=== PATIENT | female | born 1940 | race Caucasian/White ===

== ENCOUNTER → 2020-04-26 09:02 | Outpatient (BNVA) | payer MEDICARE, OTHER, SELFPAY | PROVIDERS: Family Provider Nurse Practitioner Family; PCP Nurse Practitioner Family; Visit Provider Nurse Practitioner Family | DX: Z79.899 Other long term (current) drug therapy (principal); E11.9 Type 2 diabetes mellitus without complications; I25.10 Atherosclerotic heart disease of native coronary artery without angina pectoris | CPT/HCPCS: 80053; 82043; 83036 ==

== ENCOUNTER 2020-05-28 09:24 | Outpatient (CLI) | payer MEDICARE, OTHER, SELFPAY ==
--- NOTE | 2020-06-10 06:51 | ONC FU_ITS ---
Dr. Higgins Patient Follow-Up Note Patient: Harper Ryan Unit #: [id number]: 1940 Dicatated By: Armen Higgins M.D.Date of Visit:May 28, 2020 Onc Med Follow-up/Prog Note Chief Complaint: Colon cancer. 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 She also has osteoporosis with multiple vertebral compression fractures. She underwent hand-assisted right hemicolectomy in October 2010. Pathology showed involvement in 1/16 pericolic lymph nodes. Because of underlying medical illnesses, her adjuvant chemotherapy was limited to Xeloda. As of May 2011 she had completed 6 cycles of treatment. She did require some dose reduction due to hand/foot syndrome. She tolerated treatment well otherwise. Thus far during followup there has been no evidence of recurrence. She has underlying ischemic cardiomyopathy with associated atrial fibrillation and congestive heart failure. She underwent placement of pacemaker/defibrillator in August 2017. Her other medical illnesses include hypertension, hyperlipidemia, and type II diabetes. She has had no documented coronary artery disease. She also has a history of severe osteoporosis. She suffered a vertebral compression fracture in 2013, and at that time she started treatment with Prolia. As of my follow-up visit with her in November 2015, she had remained stable clinically. However, in July 2016 she suffered another vertebral compression fracture. On her follow-up visit in November 2016 she appeared to be recovering pretty well. Her repeat DEXA scan on 11/25/2016 showed a T score of -2.6 in the lumbar spine, and -2.7 in the left femoral neck, consistent with osteoporosis. There was noted to be improvement compared to a previous study in October 2013. Despite the improvement, she suffered further vertebral compression fractures. She has undergone kyphoplasty to 4 vertebral bodies. She is seen for a scheduled visit. She has been feeling pretty good generally. She continues to have a lot of pain in her spine, which does limit her activity. She still does light work at home. ECOG score is 1. She does not have good appetite, but she does eat. She has lost weight. By our scale she is down 9 pounds over the past year. Lately her blood sugars have been running high. She does not have fever or night sweats. She has no shortness of breath, cough, or chest pain. She sometimes has acid reflux, but she manages it adequately with Liz-Benoit. Her bowels are occasionally loose. She has not been aware of any blood in the stool. Bladder function has been okay, though she does get up 2 or 3 times at night. She has no other joint or bone pain. She does not complain of headache. She occasionally gets dizzy in the head. She has no focal neurologic symptoms. She does have some difficulty sleeping, and she reports having bad dreams. Medications: Acetaminophen 1 (500 mg) Tablet Oral daily PRN, Coreg 1 (25 mg) Tablet Oral b.i.d., Coumadin 5 mg - Take 1 Tablet Oral daily, Endocet 1 (5-325 mg) Tablet Oral t.i.d. PRN, Furosemide 1 Tablet (of 40 mg) Oral b.i.d., GlipiZIDE 10 mg - Take 1 Tablet Oral b.i.d., Lantus 28 Units (of 100 Units/mL) Subcutaneous at bedtime, Lisinopril 1 (10 mg) Tablet Oral daily, Nitroglycerin 0.4 mg - Take 1 Tablet, sublingual Sublingual PRN, Prolia Subcutaneous q 24 weeks Allergies: No Known Allergies. Review of Systems: Constitutional - She is generally feeling good. She is mostly staying home due to the current pandemic. She is able to do light housework. Her appetite is poor but she is able eat. Her weight is down 9 pounds from last years visit. No fever, night sweats, or hot flashes. ECOG score is 1, ENMT - No sinus congestion/drainage. No mouth sores. No sore throat or difficulty swallowing, Hematologic/Lymphatic - No abnormal bruising or bleeding, Respiratory - No shortness of breath. No cough. No pleuritic pain or hemoptysis, Cardiovascular - No angina pain. No palpitations, Gastrointestinal - No nausea or vomiting. She has occasional heartburn. She has some loose stools. No blood in the stool or black stools, Genitourinary (F) - No dysuria or hematuria. She has urinary frequency at night. No urgency or incontinence, Musculoskeletal - She has chronic back pain. No other joint or bone pain, Integumentary - No skin complications, Neurologic - No headache. She has had episodes of dizziness. No numbness or tingling. No other focal neurologic symptoms, Psychiatric - No anxiety or depression. She is not sleeping well. She has bad dreams. Vital Signs: Performed on May 28, 2020 09:35 Height - 61.00 in Weight - 139 lbs (LOW) BSA - 1.62 sq.m BMI - 26.26 Temperature - 98.0 F (LOW) Pulse - 79 /min Respiration - 16 /min BP - 118/60 mm(hg) O2 Sat - 97 % Pain - 3 Physical Examination: Constitutional - She looks pretty good generally, Eyes - Sclerae nonicteric. Conjunctivae clear, ENMT - No lesions noted in the oral cavity, Hematologic/Lymphatic - No cervical, clavicular or axillary adenopathy, Respiratory - Lungs are clear with good air movement bilaterally, Cardiovascular - Heart rhythm is regular. There is a II/ systolic murmur. There is no galllop or rub noted, Abdomen - Soft. Liver and spleen are not enlarged. There is no abdominal mass or ascites noted and there is no inguinal adenopathy, Extremities - No edema, Neurologic - No focal neurologic deficits noted. Lab/Imaging: Impression: 1. Patient with poorly differentiated adenocarcinoma of the cecum, stage IIIA. She was given adjuvant chemotherapy with Xeloda following laparoscopic right hemicolectomy in October 2010. 2. She has underlying cardiomyopathy with congestive heart failure. 3. She has severe osteoporosis. She had started treatment with Prolia following a vertebral compression fracture in 2013. In July 2017 she had an episode of major congestive heart failure with ejection fraction reported to have declined to 11%. She underwent placement of pacemaker/implantable defribrillator. Despite the low cardiac ejection fraction, she has continuds to have pretty good energy and activity tolerance. She has had ongoing problems with her back pain and recently she has had higher blood sugars and elevated hemoglobin A1c level. She occasionally has loose stools, but she does manages adequately with antidiarrhea medication. Overall, she appears to be doing well clinically. Thus far there has been no evidence of recurrence of the colon cancer. Due to her underlying medical illnesses, particularly the cardiomyopathy, she has not had surveillance colonoscopy. Plan: She remains on observation/expectant management for the colon cancer. I will get her scheduled for CEA level with Julee Galarza. Assuming that has not increased significantly, I will just plan to see her again in 1 year. Signed By: Armen Higgins M.D. <<Signature on File>>
== END 2020-05-28 09:25 | disposition home or self-care (01) ==
LOC: ONCMED 09:26
PROVIDERS: Family Provider Nurse Practitioner Family; PCP Nurse Practitioner Family; Visit Provider Internal Medicine Medical Oncology
DX: Z08 Encounter for follow-up examination after completed treatment for malignant neoplasm (principal); Z85.038 Personal history of other malignant neoplasm of large intestine; I25.5 Ischemic cardiomyopathy; I50.9 Heart failure, unspecified; R73.9 Hyperglycemia, unspecified; R19.7 Diarrhea, unspecified; M81.0 Age-related osteoporosis without current pathological fracture; Z95.810 Presence of automatic (implantable) cardiac defibrillator; Z90.49 Acquired absence of other specified parts of digestive tract
CPT/HCPCS: G0463

== ENCOUNTER → 2020-07-30 08:47 | Outpatient (BNVA) | payer MEDICARE, OTHER, SELFPAY | PROVIDERS: Family Provider Nurse Practitioner Family; PCP Nurse Practitioner Family; Visit Provider Nurse Practitioner Family | DX: E11.9 Type 2 diabetes mellitus without complications (principal); Z79.899 Other long term (current) drug therapy | CPT/HCPCS: 80048; 83036 ==

== ENCOUNTER → 2020-11-12 09:08 | Outpatient (BNVA) | payer MEDICARE, OTHER, SELFPAY | PROVIDERS: Family Provider Nurse Practitioner Family; PCP Nurse Practitioner Family; Visit Provider Nurse Practitioner Family | DX: R53.83 Other fatigue (principal); E11.9 Type 2 diabetes mellitus without complications; Z79.4 Long term (current) use of insulin; Z51.81 Encounter for therapeutic drug level monitoring | CPT/HCPCS: 80053; 80061; 82043; 83036; 85025 ==

== ENCOUNTER → 2020-12-17 09:00 | Outpatient (BNVA) | payer MEDICARE, OTHER, SELFPAY | PROVIDERS: Family Provider Nurse Practitioner Family; PCP Nurse Practitioner Family; Visit Provider Nurse Practitioner Family | DX: T14.8XXA Other injury of unspecified body region, initial encounter (principal); L03.90 Cellulitis, unspecified; E11.9 Type 2 diabetes mellitus without complications; Z79.4 Long term (current) use of insulin; Z23 Encounter for immunization; S99.929A Unspecified injury of unspecified foot, initial encounter; R79.89 Other specified abnormal findings of blood chemistry; X58.XXXA Exposure to other specified factors, initial encounter | CPT/HCPCS: 87070 ==

== ENCOUNTER → 2022-03-03 08:34 | Outpatient (BNVA) | payer MEDICARE, OTHER, SELFPAY | PROVIDERS: Family Provider Nurse Practitioner Family; PCP Nurse Practitioner Family; Visit Provider Nurse Practitioner Family | DX: E11.9 Type 2 diabetes mellitus without complications (principal); Z79.4 Long term (current) use of insulin | CPT/HCPCS: 83036 ==

== ENCOUNTER → 2022-06-03 08:01 | Outpatient (BNVA) | payer MEDICARE, OTHER, SELFPAY | PROVIDERS: Family Provider Nurse Practitioner Family; PCP Nurse Practitioner Family; Visit Provider Nurse Practitioner Family | DX: E11.9 Type 2 diabetes mellitus without complications (principal); Z79.4 Long term (current) use of insulin; I25.10 Atherosclerotic heart disease of native coronary artery without angina pectoris | CPT/HCPCS: 80061; 83036 ==

== ENCOUNTER → 2022-06-16 10:33 | Outpatient (BNVA) | payer MEDICARE, OTHER, SELFPAY | PROVIDERS: Family Provider Nurse Practitioner Family; PCP Nurse Practitioner Family; Visit Provider Podiatrist Foot & Ankle Surgery | DX: I73.9 Peripheral vascular disease, unspecified (principal); E11.42 Type 2 diabetes mellitus with diabetic polyneuropathy; L60.3 Nail dystrophy; Z79.4 Long term (current) use of insulin | CPT/HCPCS: 11721; 93923; 99204 ==

== ENCOUNTER → 2022-09-15 14:02 | Outpatient (BNVA) | payer MEDICARE, OTHER, SELFPAY | PROVIDERS: Family Provider Nurse Practitioner Family; PCP Nurse Practitioner Family; Visit Provider Nurse Practitioner Family | DX: E11.9 Type 2 diabetes mellitus without complications (principal); Z79.4 Long term (current) use of insulin; G89.4 Chronic pain syndrome | CPT/HCPCS: 80053; 83036 ==

== ENCOUNTER → 2022-09-22 10:16 | Outpatient (BNVA) | payer MEDICARE, OTHER, SELFPAY | PROVIDERS: Family Provider Nurse Practitioner Family; PCP Nurse Practitioner Family; Visit Provider Podiatrist Foot & Ankle Surgery | DX: E11.8 Type 2 diabetes mellitus with unspecified complications (principal); I73.9 Peripheral vascular disease, unspecified; L60.3 Nail dystrophy; E11.42 Type 2 diabetes mellitus with diabetic polyneuropathy; Z79.4 Long term (current) use of insulin | CPT/HCPCS: 11721 ==

== ENCOUNTER → 2023-01-14 11:48 | Outpatient (BNVA) | payer MEDICARE, OTHER, SELFPAY | PROVIDERS: Family Provider Nurse Practitioner Family; PCP Nurse Practitioner Family; Visit Provider Nurse Practitioner Family | DX: I10 Essential (primary) hypertension (principal); E11.9 Type 2 diabetes mellitus without complications; Z79.4 Long term (current) use of insulin; G51.0 Bell's palsy | CPT/HCPCS: 80053; 80061; 83036; 85025; 86140 ==

== ENCOUNTER → 2023-01-21 09:48 | Outpatient (BNVA) | payer MEDICARE, OTHER, SELFPAY | PROVIDERS: Family Provider Nurse Practitioner Family; PCP Nurse Practitioner Family; Visit Provider Podiatrist Foot & Ankle Surgery | DX: I73.9 Peripheral vascular disease, unspecified (principal); L60.3 Nail dystrophy; E11.8 Type 2 diabetes mellitus with unspecified complications; E11.42 Type 2 diabetes mellitus with diabetic polyneuropathy; Z79.4 Long term (current) use of insulin | CPT/HCPCS: 11721 ==

== ENCOUNTER → 2023-03-25 07:46 | Outpatient (BNVA) | payer MEDICARE, OTHER, SELFPAY | PROVIDERS: Family Provider Nurse Practitioner Family; PCP Nurse Practitioner Family; Visit Provider Podiatrist Foot & Ankle Surgery | DX: I73.9 Peripheral vascular disease, unspecified (principal); L60.3 Nail dystrophy; E11.42 Type 2 diabetes mellitus with diabetic polyneuropathy; Z79.84 Long term (current) use of oral hypoglycemic drugs | CPT/HCPCS: 11721 ==

== ENCOUNTER → 2023-08-09 09:06 | Outpatient (BNVA) | payer MEDICARE, OTHER, SELFPAY | PROVIDERS: Family Provider Nurse Practitioner Family; PCP Nurse Practitioner Family; Visit Provider Nurse Practitioner Family | DX: Z79.4 Long term (current) use of insulin (principal); E11.9 Type 2 diabetes mellitus without complications; I10 Essential (primary) hypertension; E78.5 Hyperlipidemia, unspecified; M81.0 Age-related osteoporosis without current pathological fracture; E11.42 Type 2 diabetes mellitus with diabetic polyneuropathy | CPT/HCPCS: 80053; 80061; 83036 ==

== ENCOUNTER → 2023-09-23 07:40 | Outpatient (BNVA) | payer MEDICARE, OTHER, SELFPAY | PROVIDERS: Family Provider Nurse Practitioner Family; PCP Nurse Practitioner Family; Visit Provider Podiatrist Foot & Ankle Surgery | DX: E11.42 Type 2 diabetes mellitus with diabetic polyneuropathy (principal); I73.9 Peripheral vascular disease, unspecified; L60.3 Nail dystrophy; Z79.4 Long term (current) use of insulin | CPT/HCPCS: 11721 ==

== ENCOUNTER → 2024-01-06 11:42 | Outpatient (BNVA) | payer MEDICARE, OTHER, SELFPAY | PROVIDERS: Family Provider Nurse Practitioner Family; PCP Nurse Practitioner Family; Visit Provider Nurse Practitioner Family | DX: R51.9 Headache, unspecified (principal); Z79.4 Long term (current) use of insulin; E11.9 Type 2 diabetes mellitus without complications; I10 Essential (primary) hypertension; E16.2 Hypoglycemia, unspecified; R41.0 Disorientation, unspecified; Z79.01 Long term (current) use of anticoagulants | CPT/HCPCS: 80053; 83036 ==

== ENCOUNTER 2024-01-11 07:37 | Outpatient (CLI) | payer MEDICARE, OTHER, SELFPAY ==
--- NOTE | 2024-01-11 08:00 | CT_ITS ---
WS: [id number] CT HEAD NONCONTRAST HISTORY: R51.9 - Headache, unspecified TECHNIQUE: Contiguous axial imaging performed through the brain in 2.5 mm imaging. Bone and soft tiss ue windows. Sagittal and coronal reformats reviewed. All CT scans at [facility] use at least one of these dose optimization techniques: automated exposure control; mA and/or kV adjustment per pa tient size (includes targeted exams where dose is matched to clinical indication); or iterative recon struction. DLP: 1062.79 mGy.cm COMPARISON: None available. No acute intracranial hemorrhage, midline shift or mass effect. Moderate atrophy and moderate small vessel ischemic disease. No large territory infarct. Ventricles: Normal size with no hydrocephalus. No inferior displacement of the cerebellar tonsils. Extensive calcification in the intracranial carot id arteries. Paranasal sinuses: As visualized are clear. Mastoid air cells: Well pneumatized. Calvarium and scalp: Skull is intact with no soft tissue edema or swelling. CT/CT head wo con* [id number] IMPRESSION: 1. No acute intracranial hemorrhage or edema. 2. Moderate atrophy and moderate small vessel ischemic disease. 3. Moderate atherosclerosis intracranial carotid arteries.
== END 2024-01-11 07:38 | disposition home or self-care (01) ==
LOC: RAD 07:37
PROVIDERS: Family Provider Nurse Practitioner Family; PCP Nurse Practitioner Family; Visit Provider Nurse Practitioner Family
DX: R51.9 Headache, unspecified (principal); G31.9 Degenerative disease of nervous system, unspecified; I67.89 Other cerebrovascular disease; I67.2 Cerebral atherosclerosis
CPT/HCPCS: 70450

== ENCOUNTER → 2024-01-13 09:08 | Outpatient (BNVA) | payer MEDICARE, OTHER, SELFPAY | PROVIDERS: Family Provider Nurse Practitioner Family; PCP Nurse Practitioner Family; Visit Provider Nurse Practitioner Family | DX: R41.0 Disorientation, unspecified (principal); N39.0 Urinary tract infection, site not specified | CPT/HCPCS: 81000; 87086 ==

== ENCOUNTER 2024-01-17 16:07 | Outpatient (CLI) | payer MEDICARE, OTHER, SELFPAY ==
--- NOTE | 2024-01-17 16:30 | USCV_ITS ---
RyanHarper galeana Age: 83 Gender: F : 1940 Exam Date: 01/17/2024 16:13 Ordering Phys: Julee Galarza Technologist: PETER [place] [facility] [place]: Dizziness Risk Factors: Previous Vascular Surgery: Right Brachial BP: / Left Brachial BP: / Right Left Velocity (cm/s) Spectral Plaque Velocity (cm/s) Spectral Plaque Syst/Diast Broadening Syst/Diast Broadening 80.20/ 12.80 Prox CCA 82.00 / 11.00 69.80/ 15.40 Mid CCA 86.50 / 12.60 65.90/ 11.50 Distal CCA 71.00 / 14.40 99.50/ 26.20 Prox ICA 58.30 / 14.20 92.30/ 16.20 Mid ICA 99.70 / 26.00 76.90/ 22.30 Distal ICA 80.30 / 16.50 53.60 ECA 74.60 1.50 ICA/CCA 1.40 Antegrade Vertebral Antegrade 42.50/ 10.20 cm/s 54.70/ 14.70 cm/s Bi Subclavian Bi 81.10 99.30 CONCLUSIONS Intimal thickening in the common carotid arteries and internal carotid arteries bilaterally. Right ICA stenosis <50%. Mild atheromatous plaque right carotid bulb/ICA. Left ICA stenosis <50%. Mild atheromatous plaque left carotid bulb/ICA. Normal antegrade Doppler flow noted in the right vertebral artery. Normal antegrade Doppler flow noted in the left vertebral artery. Olman Mukherjee MD (Electronically Signed) Final Date: 17 Jan 2024 17:08 S
== END 2024-01-17 16:08 | disposition home or self-care (01) ==
LOC: RAD 16:07
PROVIDERS: Family Provider Nurse Practitioner Family; PCP Nurse Practitioner Family; Visit Provider Nurse Practitioner Family
DX: R42 Dizziness and giddiness (principal); I77.9 Disorder of arteries and arterioles, unspecified
CPT/HCPCS: 93880

== ENCOUNTER → 2024-05-26 08:56 | Outpatient (BNVA) | payer MEDICARE, OTHER, SELFPAY | PROVIDERS: Family Provider Nurse Practitioner Family; PCP Nurse Practitioner Family; Visit Provider Nurse Practitioner Family | DX: I10 Essential (primary) hypertension (principal); E11.9 Type 2 diabetes mellitus without complications; R53.83 Other fatigue | CPT/HCPCS: 80053; 80061; 83036; 85025 ==

== ENCOUNTER → 2024-07-14 10:27 | Outpatient (BNVA) | payer MEDICARE, OTHER, SELFPAY | PROVIDERS: Family Provider Nurse Practitioner Family; PCP Nurse Practitioner Family; Visit Provider Nurse Practitioner Family | DX: D64.9 Anemia, unspecified (principal) | CPT/HCPCS: 82607; 83550; 85025 ==

== ENCOUNTER → 2024-08-31 14:35 | Outpatient (BNVA) | payer MEDICARE, OTHER, SELFPAY | PROVIDERS: Family Provider Nurse Practitioner Family; PCP Nurse Practitioner Family; Visit Provider Obstetrics & Gynecology | DX: N81.10 Cystocele, unspecified (principal); N81.6 Rectocele | CPT/HCPCS: 81000 ==

== ENCOUNTER → 2024-09-25 11:30 | Outpatient (BNVA) | payer MEDICARE, OTHER, SELFPAY | PROVIDERS: Family Provider Nurse Practitioner Family; PCP Nurse Practitioner Family; Visit Provider Nurse Practitioner Family | DX: Z79.4 Long term (current) use of insulin (principal); E11.9 Type 2 diabetes mellitus without complications; I10 Essential (primary) hypertension; R53.83 Other fatigue; Z92.29 Personal history of other drug therapy | CPT/HCPCS: 80053; 80061; 83036; 85025 ==

== ENCOUNTER → 2024-12-07 10:01 | Outpatient (BNVA) | payer MEDICARE, OTHER, SELFPAY | PROVIDERS: Family Provider Nurse Practitioner Family; PCP Nurse Practitioner Family; Visit Provider Nurse Practitioner Family | DX: Z85.038 Personal history of other malignant neoplasm of large intestine (principal); N81.6 Rectocele; M79.605 Pain in left leg; R35.0 Frequency of micturition; E11.9 Type 2 diabetes mellitus without complications; Z79.4 Long term (current) use of insulin; R53.83 Other fatigue; N39.0 Urinary tract infection, site not specified | CPT/HCPCS: 80053; 81000; 82378; 83036; 85025; 87086 ==

== ENCOUNTER → 2024-12-21 10:37 | Outpatient (BNVA) | payer MEDICARE, OTHER, SELFPAY | PROVIDERS: Family Provider Nurse Practitioner Family; PCP Nurse Practitioner Family; Visit Provider Orthopaedic Surgery | DX: M25.552 Pain in left hip (principal); M54.32 Sciatica, left side; M54.50 Low back pain, unspecified | CPT/HCPCS: 73502; 99204 ==

== ENCOUNTER → 2025-01-01 11:27 | Outpatient (BNVA) | payer MEDICARE, OTHER, SELFPAY | PROVIDERS: Family Provider Nurse Practitioner Family; PCP Nurse Practitioner Family; Visit Provider Obstetrics & Gynecology | DX: R35.0 Frequency of micturition (principal) | CPT/HCPCS: 81000; 87086 ==

== ENCOUNTER → 2025-01-04 14:09 | Outpatient (BNVA) | payer MEDICARE, OTHER, SELFPAY | PROVIDERS: Family Provider Nurse Practitioner Family; PCP Nurse Practitioner Family; Visit Provider Orthopaedic Surgery | DX: M54.50 Low back pain, unspecified (principal); G89.29 Other chronic pain | CPT/HCPCS: 72110; 99204 ==

== ENCOUNTER 2025-01-09 07:25 | Outpatient (CLI) | payer MEDICARE, OTHER, SELFPAY ==
--- NOTE | 2025-01-09 08:00 | NM_ITS ---
WS: [email or web address] NUCLEAR MEDICINE BONE SCAN Radiopharmaceutical: 25.0 Tc-99m MDP mCi IV Injection site: Antecubital Postinjection imaging delay: 1 hr CLINICAL INFORMATION: lumbar and cervical pain COMPARISON: Radiograph 01/04/2025. Prior bone scan 2017 FINDINGS: Bone lesions: Mild thoracolumbar curve. Small amount of degenerative uptake involving the lower thoracic spine. Focal uptake involving the T12 vertebral body suspicious for recent compression. Recommend correlation with thoracic and lumbar pain. Small amount of degenerative uptake involving the RIGHT L5 pedicle. Degenerative type uptake involving both shoulders and AC joints and both knees. No other acute findings. Soft tissue contours: Normal. Kidneys: Normal. Other findings: None. NM/NM bone scan whole body* [id number] IMPRESSION: 1. No definite focal uptake in the lumbar spine to indicate acute compression fracture. 2. Focal uptake in the RIGHT L5 pedicle likely degenerative. 3. Focal uptake in the lower thoracic spine at T12 suspicious for recent compr ession. Recommend correlation with back pain. 4. Prior vertebroplasties at T11 L1 and L5
== END 2025-01-09 07:26 | disposition home or self-care (01) ==
PROVIDERS: PCP Nurse Practitioner Family; Visit Provider Orthopaedic Surgery
DX: M16.12 Unilateral primary osteoarthritis, left hip (principal); R93.89 Abnormal findings on diagnostic imaging of other specified body structures; Z98.890 Other specified postprocedural states; M43.8X5 Other specified deforming dorsopathies, thoracolumbar region
CPT/HCPCS: 78306; A9561

== ENCOUNTER 2025-01-25 07:49 | Outpatient (CLI) | payer MEDICARE, OTHER, SELFPAY ==
--- NOTE | 2025-01-25 07:58 | CT_ITS ---
WS: [id number] CT MYELOGRAM LUMBAR SPINE HISTORY: lumbar pain TECHNIQUE: Contiguous 2.5 mm axial imaging performed from T12 through the mid sacral level. Bone and soft tissue windows reviewed. Sagittal and coronal reformats are submitted and reviewed. DLP: 412.[address] scans at [facility] use at least one of these dose optimization techniques: automated exposure control; mA and/or kV adjustment per patient size (includes targeted exams where dose is matched to clinical indication); or iterative reconstruction. COMPARISON: 04/10/2017, radiograph 01/04/2025 Good contrast opacification of the subarachnoid space in the lumbar spine. Prior kyphoplasties at T11, L1 and L5. Bones are diffusely osteopenic. There is additional biconcave fracture at T12 which is age-indeterminate. There is very mild loss of height involving L3 and L4. Very slight posterior retropulsion of the superior endplate of L5 similar to the study from 2017. No pedicle or transverse process fracture. No sacral insufficiency fracture. T12-L1: Mild disc bulging. Very mild encroachment upon the ventral thecal sac of disc and osteophyte. No significant stenosis. L1-L2: Mild annular disc bulging with osteophytic ridging and mild facet arthritis. Small shallow RIGHT foraminal disc protrusion. No high-grade stenosis. L2-L3: Mild annular disc bulging with osteophytic ridging. No central stenosis. Mild to moderate bilateral foraminal stenosis. L3-L4: Mild annular disc bulging encroaching upon the ventral thecal sac. RIGHT subarticular recess disc protrusion with mild contact on the traversing RIGHT L4 nerve root. Mild central, bilateral subarticular recess and RIGHT foraminal stenosis. L4-L5: Diffuse marked annular disc bulging with osteophytic ridging. Encroachment upon the ventral thecal sac. Mild ligamentum flavum disease with severe facet arthritis. L5-S1: Mild disc bulging with osteophytic ridging. Osteophytic ridging from the vertebral bodies causing slight contact on the S1 nerve roots but no displacement. Mild RIGHT foraminal narrowing due to osteophyte predominantly. Mild hyperplasia LEFT adrenal gland. Moderate atherosclerotic plaque within the visualized aorta and iliac arteries. CT/CT lumbar spine w con [id number] IMPRESSION: 1. Prior kyphoplasties at T11, L1 and L5. 2. Age-indeterminate biconcave fracture T12. 3. Mild loss of vertebral body height at L3 and L4. 4. Diffuse osteopenia. 5. L1-2: Shallow RIGHT foraminal disc protrusion without significant stenosis. 6. L2-3: Mild to moderate bilateral foraminal stenosis due to disc osteophyte disease. 7. L3-4: RIGHT subarticular recess disc protrusion with mild contact on the tr aversing RIGHT L4 nerve root. Mild central, subarticular recess and RIGHT rubén inal stenosis. 8. L4-5: Very mild disc osteophyte encroachment upon the ventral thecal sac wi th no stenosis. Severe facet arthritis. 9. L5-S1: Mild osteophyte contact on the S1 nerve roots and mild RIGHT foramin al stenosis.
--- NOTE | 2025-01-25 08:00 | IR_ITS ---
WS: [id number] LUMBAR MYELOGRAM HISTORY: LUMBAR BACK PAIN COMPARISON: None available. FLUOROSCOPY TIME: 1min [id number] # of spot films: 4 Procedure, risks and complications were explained to the patient. Risks including bleeding, infection, headaches, allergic reaction and seizures. Consent has been obtained. With the patient in prone position the skin over the lumbar region is cleansed with ChloraPrep and anesthetized with lidocaine. 22-gauge spinal needle is inserted into the thecal sac at the appropriate level determined by fluoroscopy. Omnipaque 240; 12 ml is injected slowly under fluoroscopy with no complications. Needle bevel is perpendicular to the longitudinal fibers of the dura. Stylet is reinserted prior to removal of the needle. Patient tolerated the procedure well. Patient will proceed to CT for further evaluation. Severe osteopenia. Prior kyphoplasty's at L1 and L5. Mild narrowing of the central canal at L2-3. IR/IR myelogram sp lumbar [id number] IMPRESSION: 1. Uncomplicated lumbar myelogram. 2. Severe osteopenia. 3. Prior kyphoplasties at L1 and L5. 4. CT lumbar myelogram to follow.
--- NOTE | 2025-01-25 08:00 | CT_ITS ---
WS: [email or web address] CT CERVICAL SPINE TECHNIQUE: Noncontrast CT of the cervical spine with coronal and sagittal reformatted images. CLINICAL INFORMATION: cervical pain COMPARISON: None. DLP: 143.[address] scans at [facility] use at least one of these dose optimization techniques: automated exposure control; mA and/or kV adjustment per patient size (includes targeted exams where dose is matched to clinical indication); or iterative reconstruction. FINDINGS: Moderate spondylitic changes. Disc narrowing worse at C5-C6 and C6-C7. Small disc osteophyte protrusions C5-C6 and C6-C7 worse at C6-7. Anterior hypertrophic changes. No high-grade central canal stenosis. Lung apices are well aerated. Mastoid air cells are well aerated. C2-C3: Normal. C3-C4: Mild facet arthropathy. Mild RIGHT foraminal narrowing. C4-C5: Disc osteophyte complex with endplate ridging. Mild facet arthropathy. Mild LEFT greater than RIGHT foraminal narrowing. C5-C6: Disc osteophyte complex with endplate ridging. Moderate facet arthropathy. Moderate LEFT and mild RIGHT bony foraminal narrowing. C6-C7: Disc osteophyte complex with endplate ridging. Moderate to severe RIGHT and mild LEFT bony foraminal narrowing. Moderate facet arthropathy. C7-T1: Moderate RIGHT and no significant LEFT bony foraminal narrowing. Spinal canal is patent. Visualized posterior nasopharynx: Normal. Prevertebral soft tissues: Normal. Carotid bulb calcification. Note retropharyngeal course to the carotids RIGHT greater than LEFT. CT/CT cervical spin wo con* [id number] IMPRESSION: 1. Moderate spondylitic changes with disc space narrowing and small disc osteo phyte complexes worse at C5-C6 and C6-C7. 2. No high-grade central canal stenosis. 3. Moderate bony foraminal narrowing worse at LEFT C5-C6 and moderate to sever e RIGHT C6-7 with moderate facet arthropathy at these levels. 4. Moderate RIGHT C7-T1 bony foraminal narrowing.
== END 2025-01-25 07:50 | disposition home or self-care (01) ==
LOC: RAD 07:51
PROVIDERS: PCP Nurse Practitioner Family; Visit Provider Orthopaedic Surgery
DX: M48.061 Spinal stenosis, lumbar region without neurogenic claudication (principal); M25.78 Osteophyte, vertebrae; M79.605 Pain in left leg; M85.88 Other specified disorders of bone density and structure, other site; M51.06 Intervertebral disc disorders with myelopathy, lumbar region; Z96.9 Presence of functional implant, unspecified; M50.323 Other cervical disc degeneration at C6-C7 level; M46.92 Unspecified inflammatory spondylopathy, cervical region; M48.02 Spinal stenosis, cervical region; M50.122 Cervical disc disorder at C5-C6 level with radiculopathy; M47.892 Other spondylosis, cervical region
CPT/HCPCS: 62304; 72125; 72132; J9999; Q9966

== ENCOUNTER → 2025-01-30 14:26 | Outpatient (BNVA) | payer MEDICARE, OTHER, SELFPAY | PROVIDERS: PCP Nurse Practitioner Family; Visit Provider Orthopaedic Surgery | DX: Z09 Encounter for follow-up examination after completed treatment for conditions other than malignant neoplasm (principal) | CPT/HCPCS: 99214 ==

== ENCOUNTER → 2025-02-09 10:37 | Outpatient (BNVA) | payer MEDICARE, OTHER, SELFPAY | PROVIDERS: PCP Nurse Practitioner Family; Referring Provider Orthopaedic Surgery; Visit Provider Nurse Practitioner Family | DX: M54.89 Other dorsalgia (principal); G89.29 Other chronic pain; M54.16 Radiculopathy, lumbar region | CPT/HCPCS: 20553; 99214; J1010; J3490 ==

== ENCOUNTER → 2025-02-21 16:35 | Outpatient (BNVA) | payer MEDICARE, OTHER, SELFPAY | PROVIDERS: PCP Nurse Practitioner Family; Visit Provider Obstetrics & Gynecology | DX: B37.31 Acute candidiasis of vulva and vagina (principal); R30.0 Dysuria | CPT/HCPCS: 81000; 87086 ==

== ENCOUNTER → 2025-02-26 14:23 | Outpatient (BNVA) | payer MEDICARE, OTHER, SELFPAY | PROVIDERS: PCP Nurse Practitioner Family; Visit Provider Nurse Practitioner Family | DX: M54.16 Radiculopathy, lumbar region (principal); G89.29 Other chronic pain | CPT/HCPCS: 99214 ==